=== PATIENT | male | born 1990 | race Caucasian/White ===

== ENCOUNTER 2016-11-27 20:07 | Emergency (ER) | payer SELFPAY ==
[2016-11-27 20:16] VITALS: BP 128/81
[2016-11-27] MEDS ORDERED: LIDOCAINE 1% 2 ML VIAL ONE ×2 (20:19→20:20)
--- NOTE | 2016-11-27 20:43 | ED Physician Documentation ---
PD HPI UPPER EXT INJURY - Stated complaint Stated Complaint: LT THUMB LAC - Chief complaint Chief Complaint: Laceration - History obtained from History obtained from: Patient, Family - History of Present Illness Location: Left, Hand Type of injury: Laceration Where injury occurred: Home Timing - onset: Today Timing - duration: Hours Timing - details: Abrupt onset, Still present Improved by: Rest, Immobilization Worsened by: Moving, Palpating Associated symptoms: No: Weakness, Numbness, Tingling, Swelling Contributing factors: No: Anticoagulated Similar symptoms before: Diagnosis (laceration) Recently seen: Not recently seen - Additonal information Additional information: 26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 He has full functionality and a deep long cut exposing the extensor tendon. Review of Systems Constitutional: denies: Fever Respiratory: denies: Cough GI: denies: Vomiting Skin: reports: Laceration (s). denies: Rash Musculoskeletal: reports: Extremity pain. denies: Neck pain, Back pain Neurologic: denies: Generalized weakness, Focal weakness, Numbness PD PAST MEDICAL HISTORY - Past Medical History Past Medical History: Yes Cardiovascular: None Respiratory: None Neuro: None Endocrine/Autoimmune: None GI: None : None HEENT: None Psych: None Musculoskeletal: None Derm: None - Past Surgical History Past Surgical History: No - Present Medications Home Medications: Ambulatory Orders Medication Instructions Recorded Confirmed No Known Home Medications [No 06/08/16 06/08/16 Known Home Medications] - Allergies Allergies/Adverse Reactions: Allergies Allergy/AdvReac Type Severity Reaction Status Date / Time No Known Drug Allergies Allergy Verified 06/08/16 16:24 - Social History Does the pt smoke?: No Smoking Status: Current every day smoker Does the pt drink ETOH?: Yes Does the pt have substance abuse?: No - Immunizations Immunizations are current?: Yes - POLST Patient has POLST: No PD ED PE NORMAL - Vitals Vital signs reviewed: Yes (hypertensive ) - General General: No acute distress, Well developed/nourished - HEENT HEENT: Atraumatic, PERRL - Respiratory Respiratory: No respiratory distress - Derm Derm: Normal color, Warm and dry, No rash - Extremities Extremities: No deformity, No edema, Other (over the dorsum of the left thumb there is an axial laceration extending from the IP joint to proximal to the MCP joint about 5cm long with exposure of the extensor tendon. The tendon is not lacerated and there is full function. The distal n/V is intact. ) - Neuro Neuro: No motor deficit, No sensory deficit - Psych Psych: Normal mood, Normal affect Results - Vitals Vitals: Vital Signs - 24 hr 11/27/16 20:09 Temperature 36.2 C L Heart Rate 81 Respiratory 16 Rate Blood Pressure 128/81 H O2 Saturation 98 Oxygen O2 Source Room air Procedures - Laceration (location) left hand Length in cm: 5 Wound type: Linear, Clean Neurovascular status: Sensory intact, Motor intact, Vascular intact Tendon involvement: Tendon intact Anesthesia: Lidocaine 1% Wound Preparation: Hibiclens, Irrigated copiously NS, Wound explored, To the base Skin layer closure: Nylon, Interrupted, Size #-0 - enter number (4-0) Other: Patient tolerated well, No complications, Neurovascular intact, Dressing applied, Tetanus UTD Complexity: Simple PD MEDICAL DECISION MAKING - ED course Complexity details: reviewed old records, considered differential, d/w patient, d/w family ED course: 26 y/o male with a laceration to the dorsum of the left thumb is sutured. Departure - Departure Disposition: 01 Home, Self Care Clinical Impression: Laceration of hand, left Qualifiers: Encounter type: initial encounter Foreign body presence: without foreign body Qualified Code(s): S61.412A - Laceration without foreign body of left hand, initial encounter Condition: Stable Instructions: ED Laceration Hand Follow-Up: [facility] [Provider Group] Comments: suture removal in 10-14 days Today in the Emergency Department your blood pressure was elevated. This can happen from the stress of the visit itself, from a current illness or circumstance or from uncontrolled hypertension. If you take blood pressure medications take your usual mediations, have your blood pressure re-checked in an appropriate setting and follow up any elevation with your primary care doctor.
== END 2016-11-27 21:03 | disposition home or self-care (01) ==
LOC: ED 20:07
DX: S61.012A Laceration without foreign body of left thumb without damage to nail, initial encounter (principal); W26.0XXA Contact with knife, initial encounter; Y93.89 Activity, other specified; Y92.009 Unspecified place in unspecified non-institutional (private) residence as the place of occurrence of the external cause; R03.0 Elevated blood-pressure reading, without diagnosis of hypertension
CPT/HCPCS: 12002; 99282; 99283

== ENCOUNTER 2018-01-01 14:28 | Emergency (ER) | payer MEDICAID ==
--- NOTE | 2018-01-01 15:55 | XRAY Report ---
Procedure Date: 01/01/2018 Accession Number: [id number] / [id number] Procedure: XR - Ribs w/PA Chest RT CPT Code: FULL RESULT: EXAM: RIGHT RIB RADIOGRAPHY EXAM DATE: 01/01/2018 03:05 PM. CLINICAL HISTORY: PAIN TO RIGHT SIDE. COMPARISON: Chest radiograph 11/03/2006. Radiographs 12/21/2010.. TECHNIQUE: 1 view of the chest and 2 views of the ribs. FINDINGS: Bones: A BB-marker is in place along the lower right ribs. No displaced fracture. No suspicious focal osseous lesion. Lungs: No focal opacities. No pneumothorax. No pleural effusions. Mediastinum: Heart and mediastinal contours are unremarkable. Other: None. IMPRESSION: Normal chest and rib radiography. RADIA
[2018-01-01] MEDS ORDERED: IBUPROFEN 400 MG TABLET PO STA (16:29)
[2018-01-01] MEDS ORDERED: oxyCOD/ACETAMIN 5 MG/325 MG TABLET PO STA (16:29)
[2018-01-01] MEDS ORDERED: LIDOCAINE PATCH 5% TOP PRN (16:32)
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
[2018-01-01 16:54] VITALS: BP 127/87
== END 2018-01-01 16:51 | disposition home or self-care (01) ==
LOC: ED 14:28
DX: S20.211A Contusion of right front wall of thorax, initial encounter (principal); F17.200 Nicotine dependence, unspecified, uncomplicated; W22.8XXA Striking against or struck by other objects, initial encounter; Y93.17 Activity, water skiing and wake boarding
CPT/HCPCS: 71101; 99283; A9270

== ENCOUNTER 2018-02-12 18:34 | Emergency (ER) | payer MEDICAID ==
[2018-02-12 20:44] VITALS: BP 148/95
--- NOTE | 2018-02-12 20:51 | ED Physician Documentation ---
PD HPI ANIMAL BITE - Stated complaint Stated Complaint: DOG BITE/FACE - Chief complaint Chief Complaint: Laceration - History obtained from History obtained from: Patient - History of Present Illness Location of injury(ies): Face (left cheek) Details of the event: Dog, Bite, Well appearing (he stopped to talk to someone that had a dog, and the dog just quickly lunged out and bit him in the cheek, with avulsion of skin.) Timing - onset: Today Timing - details: Abrupt onset Worsened by: Moving, Palpating Contributing factors: No: Immunocompromised, Asplenic Similar symptoms before: Has not had sx before Recently seen: Not recently seen Review of Systems Neurologic: denies: Focal weakness, Numbness, Altered mental status, Head injury PD PAST MEDICAL HISTORY - Past Medical History Cardiovascular: None Respiratory: None Endocrine/Autoimmune: None GI: None : None HEENT: None Psych: None Musculoskeletal: None Derm: None - Past Surgical History Past Surgical History: No - Present Medications Home Medications: Ambulatory Orders Medication Instructions Recorded Confirmed Cyclobenzaprine [Flexeril] 10 mg PO TID PRN #20 tablet 01/01/18 Ibuprofen [Motrin] 800 mg PO Q8H PRN #30 tablet 01/01/18 Lidocaine Patch 5% [Lidoderm Patch] 1 each TOP DAILY PRN #10 patch 01/01/18 Amox/Clav 875/125 [Augmentin] 1 each PO BID #10 tablet 02/12/18 HYDROcod/ACETAM 5/325 [[place] 5/325] 1 tab PO Q6H PRN #12 tablet 02/12/18 Mupirocin 1 applic TP TID #15 oint...g. 02/12/18 - Allergies Allergies/Adverse Reactions: Allergies Allergy/AdvReac Type Severity Reaction Status Date / Time No Known Drug Allergies Allergy Verified 01/01/18 14:53 - Social History Does the pt smoke?: Yes Smoking Status: Current every day smoker Does the pt drink ETOH?: Yes Does the pt have substance abuse?: No - Immunizations Immunizations are current?: Yes - POLST Patient has POLST: No PD ED PE NORMAL - Vitals Vital signs reviewed: Yes - General General: Alert and oriented X 3, No acute distress, Well developed/nourished - HEENT HEENT: PERRL, EOMI, Other (left cheek with irregular shaped skin avulsion partial thickness at edges, down to fatty tissue in center. It is about 2-3 cm diameter, but again irregular shape. He has some swelling of the area. No facial weakness. ) - Neck Neck: Supple, no meningeal sign, No adenopathy - Cardiac Cardiac: RRR, No murmur - Respiratory Respiratory: Clear bilaterally Results - Vitals Vitals: Vital Signs - 24 hr 02/12/18 02/12/18 18:40 20:43 Temperature 36.4 C L 36.6 C Heart Rate 71 75 Respiratory 16 14 Rate Blood Pressure 127/84 H 148/95 H O2 Saturation 100 100 Oxygen O2 Source Room air PD MEDICAL DECISION MAKING - ED course Complexity details: considered differential (just a small chunk of skin avulsed , down to deeper skin layer but fatty tissue only in the center. Not enough skin laxity to bridge the wound. Will need to heal by secondary intention and then see Plastics or maxillofacial if need scar revision. ), d/w patient - Sepsis Event Vital Signs: Vital Signs - 24 hr 02/12/18 02/12/18 18:40 20:43 Temperature 36.4 C L 36.6 C Heart Rate 71 75 Respiratory 16 14 Rate Blood Pressure 127/84 H 148/95 H O2 Saturation 100 100 Oxygen O2 Source Room air Departure - Departure Disposition: 01 Home, Self Care Clinical Impression: Dog bite of face Qualifiers: Encounter type: initial encounter Qualified Code(s): S01.85XA - Open bite of other part of head, initial encounter Condition: Stable Record reviewed to determine appropriate education?: Yes Instructions: ED Bite Dog Follow-Up: Karel Vernon MD [Physician No Access] - Prescriptions: Amox/Clav 875/125 [Augmentin] 1 each PO BID #10 tablet HYDROcod/ACETAM 5/325 [[place] 5/325] 1 tab PO Q6H PRN #12 tablet PRN Reason: Pain Mupirocin 1 applic TP TID #15 oint...g. Comments: Clean the wound with soap and water 2-3 times a day and apply mupirocin antibiotic ointment. Take Augmentin oral antibiotic twice daily for 5 days to reduce the chance of infection. Tylenol or ibuprofen or naproxen if needed for pain. Add hydrocodone if needed for worse pain. See how well this heals over the next 1-2 weeks. Follow-up with your primary care or more particularly plastic surgery if it is healing up with an unacceptable scar. Discharge Date/Time: 02/12/18 21:43
[2018-02-12] MEDS ORDERED: MUPIROCIN 2% OINT 1 GM TOP STA (21:21)
[2018-02-12] MEDS ORDERED: AMOX/CLAV 875 MG/125 MG TABLET PO STA (21:21)
[2018-02-12] MEDS ORDERED: HYDROcod/ACETAM 5/325 MG TABLET PO STA (21:21)
[2018-02-12] MEDS ORDERED: IBUPROFEN 600 MG TABLET PO STA (21:21)
== END 2018-02-12 21:43 | disposition home or self-care (01) ==
LOC: ED 18:34
DX: S01.452A Open bite of left cheek and temporomandibular area, initial encounter (principal); F17.200 Nicotine dependence, unspecified, uncomplicated; W54.0XXA Bitten by dog, initial encounter; Y93.89 Activity, other specified
CPT/HCPCS: 99283; A9270

== ENCOUNTER 2018-11-30 18:50 | Emergency (ER) | payer SELFPAY ==
[2018-11-30 21:05] VITALS: BP 117/79
== END 2018-11-30 22:12 | disposition left against medical advice (07) ==
LOC: ED 18:50
DX: Z53.21 Procedure and treatment not carried out due to patient leaving prior to being seen by health care provider (principal)

== ENCOUNTER 2021-02-15 15:58 | Emergency (ER) | payer SELFPAY ==
[2021-02-15 16:05] VITALS: BP 139/88
--- NOTE | 2021-02-15 16:58 | XRAY Report ---
PROCEDURE: Knee 4 View RT INDICATIONS: fall persistent pain TECHNIQUE: 4 views of the right knee(s) were acquired. COMPARISON: X-ray dated 05-17-12 FINDINGS: Bones: No fractures or dislocations. No suspicious bony lesions. Soft tissues: Mild to moderate joint effusion. No suspicious soft tissue calcifications. IMPRESSION: Mild to moderate effusion. No visualized acute fracture or dislocation. However, occult injury cannot be excluded. Recommend short interval imaging follow-up in 7-10 days as clinically michelle cated for additional evaluation, including MRI if concern for ligamentous injury persists.. Reviewed by: Kia Higgins MD on 02/15/2021 4:57 PM PDT Approved by: Kia Higgins MD on 02/15/2021 4:57 PM PDT Station ID: [id number]
--- NOTE | 2021-02-15 17:06 | ED Physician Documentation ---
PD HPI LOWER EXT INJURY - Stated complaint Stated Complaint: RT KNEE SWELLING - Chief complaint Chief Complaint: Ext Problem - History obtained from History obtained from: Patient - History of Present Illness PD HPI LOW EXT INJURY LOCATION: Right, Knee Type of injury: Fall, Twist Where injury occurred: Work Timing - onset: How many weeks ago (2) Timing - duration: Weeks (2) Timing - details: Abrupt onset, Still present Improved by: Rest, Immobilization Worsened by: Moving, Palpating Associated symptoms: Swelling Contributing factors: No: Anticoagulated Similar symptoms before: Has not had sx before Recently seen: Not recently seen - Additional information Additional information: Previously well 30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 He was able to get around initially without much trouble but as time is gone on he has had more swelling in the knee and has had more pain. He did try a knee brace that he got at [facility] and this really did not seem to help much in fact seem to be irritating his knee. He feels his knee is a bit unstable and he has had no improvement in fact feels worse. His other injuries have healed and he feels there is no question or issue with the other injuries. Review of Systems Constitutional: denies: Fever Eyes: denies: Decreased vision Ears: denies: Ear pain Nose: denies: Congestion Throat: denies: Sore throat Cardiac: denies: Chest pain / pressure Respiratory: denies: Dyspnea, Cough GI: denies: Vomiting, Diarrhea : denies: Dysuria, Frequency Musculoskeletal: reports: Extremity pain, Joint pain, Joint swelling, Pain with weight bearing. denies: Neck pain, Back pain Neurologic: denies: Generalized weakness, Focal weakness, Numbness PD PAST MEDICAL HISTORY - Past Medical History Cardiovascular: None Respiratory: None Endocrine/Autoimmune: None GI: None : None HEENT: None Psych: None Musculoskeletal: None Derm: None - Past Surgical History Past Surgical History: No - Allergies Allergies/Adverse Reactions: Allergies Allergy/AdvReac Type Severity Reaction Status Date / Time No Known Drug Allergies Allergy Verified 02/15/21 16:02 - Social History Does the pt smoke?: Yes Smoking Status: Current every day smoker Does the pt drink ETOH?: Yes Does the pt have substance abuse?: No - Immunizations Immunizations are current?: Yes - POLST Patient has POLST: No PD ED PE NORMAL - Vitals Vital signs reviewed: Yes (hypertensive ) - General General: Alert and oriented X 3, No acute distress, Well developed/nourished - HEENT HEENT: Atraumatic, PERRL, EOMI - Respiratory Respiratory: No respiratory distress - Derm Derm: Normal color, Warm and dry, No rash - Extremities Extremities: No deformity, Other (There is swelling and point tenderness to the right knee over the medial joint compartment. There is pain with compression of the joint space and opening with valgus forces medially. The remainder of ligaments are stable to testing. 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, No motor deficit, No sensory deficit, Normal speech Eye Opening: Spontaneous Motor: Obeys Commands Verbal: Oriented GCS Score: 15 - Psych Psych: Normal mood, Normal affect Results - Vitals Vitals: Vital Signs - 24 hr 02/15/21 16:02 Temperature 36.8 C Heart Rate 88 Respiratory 16 Rate Blood Pressure 139/88 H O2 Saturation 100 Oxygen O2 Source Room air - Rads (name of study) knee L Radiology: Prelim report reviewed (Impression: Mild to moderate effusion, no visualized acute fracture or dislocation.), EMP read indepedently, See rad report PD MEDICAL DECISION MAKING - ED course Complexity details: reviewed results, re-evaluated patient, considered differential, d/w patient ED course: 30-year-old male with a fall off a ladder has sprained his right knee he appears to have a medial collateral ligament sprain and he is placed into a knee immobilizer and instructed to follow-up with orthopedics. The remainder of his injuries appear to be healing and or not investigated further. Departure - Departure Disposition: 01 Home, Self Care Clinical Impression: Sprain of left knee Qualifiers: Encounter type: initial encounter Involved ligament of knee: medial collateral ligament Qualified Code(s): S83.412A - Sprain of medial collateral ligament of left knee, initial encounter Condition: Stable Instructions: ED Sprain Knee Collateral Ligaments Follow-Up: Mateo Ruiz MD [Provider Admit Priv/Credential] - Discharge Date/Time: 02/15/21 17:26
== END 2021-02-15 17:26 | disposition home or self-care (01) ==
LOC: ED 15:58
DX: S83.412A Sprain of medial collateral ligament of left knee, initial encounter (principal); W11.XXXA Fall on and from ladder, initial encounter; Y93.H3 Activity, building and construction; Y99.0 Civilian activity done for income or pay; F17.200 Nicotine dependence, unspecified, uncomplicated
CPT/HCPCS: 99282; 99283

== ENCOUNTER 2022-12-17 22:59 | Emergency (ER) | payer SELFPAY ==
[2022-12-17 23:10] VITALS: BP 150/90
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
[2022-12-17] MEDS ORDERED: LIDOCAINE 1% 2 ML VIAL SUBQ STA (23:26)
[2022-12-17] MEDS ORDERED: TETANUS/DIPHTHERIA/PERTUSSIS 0.5 ML SYRINGE IM ONE (23:27)
[2022-12-18] MEDS ORDERED: BACITRACIN ZINC OINT 1 PACKET TOP STA (00:22)
== END 2022-12-18 00:33 | disposition home or self-care (01) ==
LOC: ED 22:59
DX: S01.81XA Laceration without foreign body of other part of head, initial encounter (principal); W39.XXXA Discharge of firework, initial encounter; F17.200 Nicotine dependence, unspecified, uncomplicated; Z23 Encounter for immunization
CPT/HCPCS: 12011; 90471; 90715; 99283; A9270